=== PATIENT | female | born 1990 | race Two or more races ===

== ENCOUNTER 2022-04-13 18:32 | Emergency (ER) | payer MEDICAID ==
[~2022-04-13] VITALS: Ht 175.3 cm; Wt 91.0 kg
[2022-04-13 18:34] VITALS: BP 128/83
== END 2022-04-13 23:49 | disposition left against medical advice (07) ==
LOC: ER 18:32
DX: Z53.21 Procedure and treatment not carried out due to patient leaving prior to being seen by health care provider (principal)